=== PATIENT | male | born 1985 | race Caucasian/White ===

== ENCOUNTER 2020-06-11 11:36 | Emergency (ER) | payer BC ==
[~2020-06-11 11:36] MED LIST: IBUPROFEN600 MG PO
[2020-06-11 12:39] LABS: HEMOGLOBIN 14.7 gm/dl (14.0-17.5); RED BLOOD COUNT 4.62 M/UL (4.20-5.50); WHITE BLOOD COUNT 3.4 K/UL (4.5-11.0)
[2020-06-11 12:58] LABS: BUN/CREATININE RATIO 13 (0-10)
[2020-06-11] MEDS ORDERED: ATROVENT-HFA12.9 GM INH (13:31)
[2020-06-11] MEDS ORDERED: DOXYCYCLINE HY100 M2 PO (13:31)
== END 2020-06-11 13:39 | disposition home or self-care (01) ==
LOC: ER1 11:36
PROVIDERS: Physician Assistant Medical
DX: U07.1 COVID-19 (principal); J12.82 Pneumonia due to coronavirus disease 2019
CPT/HCPCS: 29125; 71045; 80053; 85025; 99283

== ENCOUNTER 2020-06-13 13:30 | Inpatient (IN) | payer BC ==
[~2020-06-13] VITALS: Ht 170.2 cm; Wt 89.9 kg
[~2020-06-13 13:30] MED LIST changes: +ATROVENT-HFA12.9 GM INH; +DOXYCYCLINE HY100 M2 PO
[2020-06-13 14:29] LABS: HEMOGLOBIN 13.4 gm/dl (14.0-17.5); RED BLOOD COUNT 4.3 M/UL (4.20-5.50)
[2020-06-13 14:38] LABS: BUN/CREATININE RATIO 8 (0-10)
--- NOTE | 2020-06-15 03:05 | NUR ---
O2 SAT SUDDENLY DROPED TO 68% ON 5LPM AND IMMEDIATELY CAME UP TO 77%. O2 CHANGED TO NRB AND SAT CLIMED TO 93-95% DR MATTHEW NOTIFIED, MD SAID TO TITRATE TO KEEP SAT ABOVE 90%. RT PLACING PATIENT ON AIRVO AND GIVING NEB TX.
[2020-06-15 07:50] LABS: RED BLOOD COUNT 3.96 M/UL (4.20-5.50)
[2020-06-15 09:14] LABS: BUN/CREATININE RATIO 16 (0-10)
--- NOTE | 2020-06-15 15:14 | NUR ---
06/15/20 0720 LABORED BREATHING O2 SATS 84-85% RT HERE, DR MATTHEW NOTIFIED ORDERS GIVEN FOR PATIENT TO BE PLACED ON BIPAP, HOUSE NOTIFIED OF NEED FOR PCU OR ICU BED. BREATHING TREATMENT GIVEN PER RT. PATIENT REASSURED 0815 TRANSPORTED TO ICU VIA BED WITH OXYGEN 100% NRB AND TRANSPORT MONITOR, RN, RT AND RESOURCE NURSE
--- NOTE | 2020-06-16 01:42 | NUR ---
AT APPROXIMATELY 0250 ON 06/15/20 I RECEIVED A CALL FROM DIMA DUMONT ASKING ME TO BRING A NONREBREATHER INTO THE PATIENTS ROOM. WHEN I BROUGHT IT IN SHE ASKED ME TO CALL THE AIR MOVING TECHNICIAN MD AND NOTIFY HIM OF PTS DECLINE. I IMMEDIATELY CALLED ON HIS CELL PHONE. I TOLD HIM THAT THE PTS OXYGEN SATURATION HAD DROPPED INTO THE 60S-70S AND HE HAD BEEN PLACED ON A NONREBREATHER WHICH RAISED HIS SATURATION INTO THE LOW 90S. I REQUESTED THAT HE COME ASSESS THE PATIENT AND ASKED IF HE WOULD LIKE AN ABG, IMAGING, LABS, OR ANY INTERVENTIONS WHILE WE WAITED FOR HIM TO GET THERE. HE STATED THAT HE DID NOT NEED TO SEE THE PATIENT AND ORDERED THAT THE PATIENT BE PLACED ON AIRVO WITH TITRATION TO KEEP HIS SATS GREATER THAN 90%. I NOTIFIED RT AND PLACED THE ORDER AND NOTIFIED HIS NURSE WHO WAS STILL AT BEDSIDE.
== END 2020-06-15 16:30 | disposition short-term general hospital (02) | DRG 871 ==
LOC: ER1 13:30 → CDU 15:13 → MED SURG 4 20:55 → 2 EAST 06-15 08:33
PROVIDERS: Student in an Organized Health Care Education/Training Program; ADMIT Internal Medicine
PROC: 8E0ZXY6 Isolation (ICD-10-PCS; 2020-06-13)
PROC: 5A1935Z Respiratory Ventilation, Less than 24 Consecutive Hours (ICD-10-PCS; principal; 2020-06-15)
PROC: XW033E5 Introduction of Remdesivir Anti-infective into Peripheral Vein, Percutaneous Approach, New Technology Group 5 (ICD-10-PCS; 2020-06-15)
PROC: XW13325 Transfusion of Convalescent Plasma (Nonautologous) into Peripheral Vein, Percutaneous Approach, New Technology Group 5 (ICD-10-PCS; 2020-06-15)
PROC: 5A09357 Assistance with Respiratory Ventilation, Less than 24 Consecutive Hours, Continuous Positive Airway Pressure (ICD-10-PCS; 2020-06-15)
PROC: 0BH17EZ Insertion of Endotracheal Airway into Trachea, Via Natural or Artificial Opening (ICD-10-PCS; 2020-06-15)
PROC: 05HM33Z Insertion of Infusion Device into Right Internal Jugular Vein, Percutaneous Approach (ICD-10-PCS; 2020-06-15)
PROC: B543ZZA Ultrasonography of Right Jugular Veins, Guidance (ICD-10-PCS; 2020-06-15)
PROC: 03HY32Z Insertion of Monitoring Device into Upper Artery, Percutaneous Approach (ICD-10-PCS; 2020-06-15)
PROC: 4A133B1 Monitoring of Arterial Pressure, Peripheral, Percutaneous Approach (ICD-10-PCS; 2020-06-15)
PROC: 4A133J1 Monitoring of Arterial Pulse, Peripheral, Percutaneous Approach (ICD-10-PCS; 2020-06-15)
DX: A41.89 Other specified sepsis (principal); U07.1 COVID-19; J12.82 Pneumonia due to coronavirus disease 2019; J80 Acute respiratory distress syndrome; J15.9 Unspecified bacterial pneumonia; R00.0 Tachycardia, unspecified
CPT/HCPCS: 0240U; 29125; 31500; 36415; 36600; 71045; 80053; 81001; 82550; 82553; 82803; 83605; 83735; 83880; 84100; 84484; 85025; 87040; 87086; 93005; 94640; 94660; 94664; 94760; 96365; 96366; 96368; 96375; 99283; 99285; J0456; J0696; J1100; J1650; J2060; J2405; J2704; J3480; J7030